=== PATIENT | male | born 1950 | race Caucasian/White ===

== ENCOUNTER → 2019-12-23 | Outpatient (CLI) | payer MEDICARE ==
--- NOTE | 2019-12-23 15:46 | Diagnostic Imaging Report ---
INDICATION: Left shoulder pain for 3 months. TIME OF EXAM: 3:26 PM. TECHNIQUE: Multiple views of the left shoulder were obtained. FINDINGS: The glenohumeral and acromioclavicular alignment is normal. There is some spurring at the humeral head/neck junction medially, consistent with degenerative change. There are also some hypertrophic degenerative changes at the acromioclavicular joint. No fracture is identified. The acromiohumeral space is normal. IMPRESSION: Degenerative changes. No acute bony abnormality is detected. Dictated by: Dictated on workstation # [id number]
== END ==
LOC: RAD FS 15:17
PROVIDERS: ATTEND Nurse Practitioner
DX: M19.012 Primary osteoarthritis, left shoulder (principal)
CPT/HCPCS: 73030